=== PATIENT | female | born 1995 | race Caucasian/White ===

== ENCOUNTER 2020-05-23 09:48 | Inpatient (IN) | payer BC, OTHER ==
[2020-05-23] MEDS ORDERED: Tranexamic Acid 1,000 MG in Sodium Chloride 0.9% 100 ML IV PRN (21:59)
[2020-05-23] MEDS ORDERED: Carboprost Tromethamine 250 MCG/1 ML Amp IM PRN (21:59)
[2020-05-23] MEDS ORDERED: Methylergonovine 0.2 MG/1 ML Amp IM PRN (21:59)
[2020-05-23] MEDS ORDERED: Sodium Chloride 0.9% 10 ML Syringe FLUSH PRN (21:59)
[2020-05-23] MEDS ORDERED: Lidocaine 1% 30 ML SDV INJECT PRN (21:59)
[2020-05-23] MEDS ORDERED: Misoprostol 400 MCG (4 X 100 MCG TAB) RECTAL PRN (21:59)
[2020-05-23] MEDS ORDERED: Lactated Ringers 1,000 ML IV ONE (21:59)
[2020-05-23] MEDS ORDERED: Oxytocin/Normal Saline 30 UNIT/500 ML BAG IV SCH (22:00)
[2020-05-23] MEDS ORDERED: Penicillin G Potassium 5 MILLUNITS in Sodium Chloride 0.9% 100 ML IV ONE (22:15)
--- NOTE | 2020-05-23 22:42 | PCM.LDHP ---
L&D History of Present Illness - General Date of Service: 05/23/20 (Admit H&P) Admit Problem/Dx: Patient Status Order with Admit Dx/Problem 05/23/20 21:59 Patient Status [ADT] Routine Admission Diagnosis/Problem Admission Diagnosis/Problem labor established Ayaka is a delightful 24yo WF @ 39w4d who presentes with cxns every 3 minutes getting stronger. baby active. No LOF or bleeding. No pre-E sx. complications include Gestational DM, diet controlled GBS positive RI, RH positive. 05/23/20 22:31 Source of Information: Patient, Family, Old Records, Provider, RN, Other ([facility] notes and episode) History Limitations: Reports: No Limitations - History of Present Illness Introduction:: as above. Timing/Duration: Reports: minutes: (3), getting worse Location, : Reports: Uterus Severity: Moderate Improves with: Reports: None Worsens with: Reports: None Associated Symptoms: Reports: N - Related Data Allergies/Adverse Reactions: Allergies Allergy/AdvReac Type Severity Reaction Status Date / Time kiwi Allergy Cannot Verified 05/23/20 22:48 Remember cats Allergy Itching Uncoded 05/23/20 22:48 Home Medications: Home Meds Pnv No.95/Ferrous Fum/Folic AC [ Tablet] 1 tab PO DAILY 04/24/20 [History] Past Medical History HEENT History: Reports: Impaired Vision Other HEENT History: wears contacts Cardiovascular History: Reports: None Respiratory History: Reports: None Gastrointestinal History: Reports: GERD Genitourinary History: Reports: None CONTROL SYSTEMS SPECIALIST History: Reports: None, : 1 Para: 0 LMP (Approximate): Other Musculoskeletal History: back and neck problems in the past, broke right collar bone 7 years ago Neurological History: Reports: Concussion Psychiatric History: Reports: None Endocrine/Metabolic History: Reports: None Hematologic History: Reports: None Immunologic History: Reports: None Oncologic (Cancer) History: Reports: None Dermatologic History: Reports: None - Infectious Disease History Infectious Disease History: Reports: None - Past Surgical History Head Surgeries/Procedures: Reports: None Social & Family History - Family History Family Medical History: Noncontributory - Caffeine Use Caffeine Use: Reports: Coffee - Living Situation & Occupation Living situation: Reports: , with Significant Other Occupation: Employed H&P Review of Systems - Review of Systems: Review Of Systems: Comprehensive ROS is negative, except as noted in HPI. General: Reports: No Symptoms L&D Exam - Exam Exam: See Below - OB Specific Contraction Frequency (min): 3 Contraction Intensity: Moderate Movement: Active Heart Tones: Present Heart Tones per Min: 135 Heart Rate (FHR) Variability: Moderate (6-25 bmp) Presentation: Vertex - Eduardo Score Eduardo Score Cervix Position: Midposition Eduardo Score Consistency: Soft Eduardo Score Effacement: 51-70% Eduardo Score Dilation: 3-4 cm - Exam General: Alert, Oriented HEENT: Conjunctiva Clear, EACs Clear, EOMI, Hearing Intact, Mucosa Moist & [place], Nares Patent Neck: Supple, Trachea Midline Lungs: Clear to Auscultation, Normal Respiratory Effort Cardiovascular: Regular Rate, Regular Rhythm GI/Abdominal Exam: Normal Bowel Sounds, Soft, Non-Tender, No Organomegaly, No Abnormal Bruit, Pelvis Stable Rectal Exam: Normal Exam, Deferred Genitourinary: Normal external exam, Normal bimanual exam, Normal speculum exam Back Exam: Normal Inspection, Full Range of Motion Extremities: Normal Inspection, Normal Range of Motion, Non-Tender, Normal Capillary Refill, Pedal Edema Skin: Warm, Dry, Intact Neurological: Cranial Nerves Intact, Reflexes Equal Bilateral Psychiatric: Alert, Normal Affect, Normal Mood - Problem List (1) SNOMED Code(s): 92003249 ICD Code: Z34.90 - ENCNTR FOR SUPRVSN OF NORMAL , UNSP, UNSP TRIMESTER Status: Acute Current Visit: Yes (2) Blood type O+ SNOMED Code(s): 730983571 ICD Code: Z67.40 - TYPE O BLOOD, RH POSITIVE Status: Acute Current Visit: Yes (3) Rubella immune SNOMED Code(s): 644069392 ICD Code: Z78.9 - OTHER SPECIFIED HEALTH STATUS Status: Acute Current Visit: Yes (4) GBS (group B Streptococcus carrier), +RV culture, currently SNOMED Code(s): 7794765533914, 837738960, 8838657343948 ICD Code: O99.820 - STREPTOCOCCUS B CARRIER STATE COMPLICATING Status: Acute Current Visit: Yes (5) Gestational diabetes mellitus (GDM) SNOMED Code(s): 70611184 ICD Code: O24.419 - GESTATIONAL DIABETES MELLITUS IN , UNSP CONTROL Status: Acute Current Visit: Yes (6) Gestational [-induced] hypertension without significant proteinuria, complicating the puerperium SNOMED Code(s): 20504358, 89304714 ICD Code: O13.5 - GESTATNL HTN WITHOUT SIGNIFICANT PROTEIN, COMP THE PUERP Status: Acute Current Visit: Yes Problem List Initiated/Reviewed/Updated: Yes Orders Last 24hrs: Active Orders 24 hr Category Date Time Status Patient Status [ADT] Routine ADT 05/23/20 21:59 Active Blood Glucose Check, Bedside [RC] ONETIME Care 05/23/20 21:59 Active Communication Order [RC] ASDIRECTED Care 05/23/20 21:59 Active Heart Tones [RC] PER UNIT ROUTINE Care 05/23/20 21:59 Active Notify Provider Vital Signs OB [RC] ASDIRECTED Care 05/23/20 21:59 Active Notify Provider [RC] PRN Care 05/23/20 21:59 Active Pump Management, Intrathecal [RC] ASDIRECTED Care 05/23/20 22:01 Active Up ad Tiffanie [RC] ASDIRECTED Care 05/23/20 21:59 Active Vital Signs [RC] PER UNIT ROUTINE Care 05/23/20 21:59 Active ALANINE AMINOTRANSFERASE,ALT [CHEM] Routine Lab 05/23/20 21:59 Ordered ASPARTATE AMNIOTRANSFERASE,AST [CHEM] Routine Lab 05/23/20 21:59 Ordered BLOOD UREA NITROGEN,BUN [CHEM] Routine Lab 05/23/20 21:59 Ordered CBC W/O DIFF,HEMOGRAM [HEME] Routine Lab 05/23/20 21:59 Ordered CORONAVIRUS COVID-19 PCR PHL Stat Lab 05/23/20 21:59 Ordered CREATININE W/GFR [CHEM] Routine Lab 05/23/20 21:59 Ordered LACTATE DEHYDROGENASE,LDH [CHEM] Routine Lab 05/23/20 21:59 Ordered PROTEIN/CREATININE RATIO,URINE [URCHEM] Routine Lab 05/23/20 21:59 Ordered UA W/O MICROSCOPIC [URIN] Routine Lab 05/23/20 21:59 Ordered URIC ACID [CHEM] Routine Lab 05/23/20 21:59 Ordered Acetaminophen [TylenoL] Med 05/23/20 21:59 Active 650 mg PO Q4H PRN Carboprost Tromethamine [Hemabate DS] Med 05/23/20 21:59 Active 250 mcg IM ASDIRECTED PRN Lactated Ringers [Ringers, Lactated] 1,000 ml Med 05/23/20 22:00 Active IV ASDIRECTED Lactated Ringers [Ringers, Lactated] 1,000 ml Med 05/23/20 21:59 Active IV BOLUS Lidocaine 1% [Xylocaine-MPF 1%] Med 05/23/20 21:59 Active 30 ml INJECT ASDIRECTED PRN Methylergonovine [Methergine] Med 05/23/20 21:59 Active 0.2 mg IM ASDIRECTED PRN Ondansetron [Zofran] Med 05/23/20 21:59 Active 4 mg IVPUSH Q4H PRN Oxytocin/Normal Saline [Pitocin in NS 30 UNIT/500 ML] Med 05/23/20 22:00 Active 30 unit in 500 ml IV TITRATE Penicillin G Potassium [Pfizerpen] 3 millunits Med 05/24/20 02:00 Active Sodium Chloride 0.9% [Normal Saline] 100 ml IV Q4HR Penicillin G Potassium [Pfizerpen] 5 millunits Med 05/23/20 22:15 Active Sodium Chloride 0.9% [Normal Saline] 100 ml IV ONETIME Sodium Chloride 0.9% [Saline Flush] Med 05/23/20 21:59 Active 10 ml FLUSH ASDIRECTED PRN Tranexamic Acid [Cyklokapron] 1,000 mg Med 05/23/20 21:59 Active Sodium Chloride 0.9% [Normal Saline] 100 ml IV ONETIME miSOPROStoL [Cytotec] Med 05/23/20 21:59 Active 800 mcg RECTAL ASDIRECTED PRN Saline Lock Insert [OM.PC] Routine Oth 05/23/20 21:59 Ordered Resuscitation Status Routine Resus Stat 05/23/20 21:59 Ordered Medication Orders Acetaminophen (Tylenol) 650 mg PO Q4H PRN PRN Reason: Pain (Mild 1-3) and fever Carboprost Tromethamine (Hemabate Ds) 250 mcg IM ASDIRECTED PRN PRN Reason: HEMORRHAGE Lactated Ringer's (Ringers, Lactated) 1,000 mls @ 999 mls/hr IV BOLUS ONE Stop: 05/23/20 22:59 Lactated Ringer's (Ringers, Lactated) 1,000 mls @ 125 mls/hr IV ASDIRECTED LUZ MARINA Tranexamic Acid 1,000 mg/ (Sodium Chloride) 110 mls @ 660 mls/hr IV ONETIME PRN PRN Reason: Bleeding Oxytocin/Sodium Chloride (Pitocin In Ns 30 Unit/500 Ml) 30 unit in 500 mls @ 2 mls/hr IV TITRATE LUZ MARINA; Protocol Penicillin G Potassium 5 (millunits/ Sodium Chloride) 100 mls @ 200 mls/hr IV ONETIME ONE Stop: 05/23/20 22:44 Penicillin G Potassium 3 (millunits/ Sodium Chloride) 100 mls @ 200 mls/hr IV Q4HR LUZ MARINA Lidocaine HCl (Xylocaine-Mpf 1%) 30 ml INJECT ASDIRECTED PRN PRN Reason: Perineal Repair Methylergonovine Maleate (Methergine) 0.2 mg IM ASDIRECTED PRN PRN Reason: Hemorrhage Misoprostol (Cytotec) 800 mcg RECTAL ASDIRECTED PRN PRN Reason: Hemorrhage Ondansetron HCl (Zofran) 4 mg IVPUSH Q4H PRN PRN Reason: Nausea/Vomiting Sodium Chloride (Saline Flush) 10 ml FLUSH ASDIRECTED PRN PRN Reason: Keep Vein Open Assessment/Plan Comment:: Assessment/Plan: 24yo @ 39w4d with onset labor GBS+, planning PCN prophylaxis in labor blood type O+ Rubella immune Gestational Diabetes Mellitus --diet-controlled Gestational HTN, r/o Pre-eclampsia COVID negative NST reactive routine admit orders all questions answered. [facility]
[2020-05-23] MEDS: Lactated Ringers 1,000 ML IV SCH (23:09)
[2020-05-24] MEDS ORDERED: fentaNYL 100 MCG/2 ML SDV ONE ×2 (01:17→06:03)
[2020-05-24] MEDS ORDERED: Sodium Bicarbonate 4.2% 2.5 MEQ/5 ML SDV ONE ×2 (01:18→06:04)
[2020-05-24] MEDS ORDERED: EPINEPHrine 1 MG/1 ML Amp ONE ×2 (01:18→06:04)
[2020-05-24] MEDS: Ondansetron 4 MG/2 ML SDV IVPUSH PRN ×2 (01:25→05:57)
[2020-05-24] MEDS: Lactated Ringers 1,000 ML IV SCH ×3 (01:26→06:27)
--- NOTE | 2020-05-24 01:45 | PCM.SN.2 ---
- Free Text/Narrative Note: Intrathecal, sitting position, sterile prep and drape. 1 % lidocaine w bicarb for skinwheal to L2 L3 interspace. Introducer x 1. Pos CSF, neg heme, neg parasthesia. 0.1 ml 1:1000 pf epi, 15 mcg pf sufenta, 35 mcg pf fentanyl, 0.4 ml pf NS and 6 mg of 0.75% pf marcaine injected after csf aspiration. Pt to L lateral position. Procedure time 0115 to 0145
[2020-05-24] MEDS ORDERED: ePHEDrine 50 MG/ML SDV IVPUSH ONE (01:57)
[2020-05-24] MEDS: Penicillin G Potassium 3 MILLUNITS in Sodium Chloride 0.9% 100 ML IV SCH ×3 (01:57→18:45)
--- NOTE | 2020-05-24 06:24 | PCM.SN.2 ---
- Free Text/Narrative Note: Intrathecal, sitting position, sterile prep and drape. 1 % lidocaine w bicarb for skinwheal to L2 L3 interspace. Introducer x 1. Pos CSF, neg heme, neg parasthesia. 0.1 ml 1:1000 pf epi, 15 mcg pf sufenta, 35 mcg pf fentanyl, 0.4 ml pf NS and 6 mg of 0.75% pf marcaine injected after csf aspiration. Pt to L lateral position. Procedure time 0605 to 0635
--- NOTE | 2020-05-24 11:13 | PCM.DEL ---
L & D Note - General Info Date of Service: 05/24/20 (time of 0948) Mother's Due Date: 05/26/20 (39w5d) - Delivery Note Labor: Spontaneous Delivery Outcome: Livebirth Infant Delivery Method: Spontaneous Vaginal Delivery-Single Delivery Mode: Vacuum Extraction Presentation: Right Occiput Anterior (BLAZE) Nuchal Cord: None Prep: Povidone-Iodine (Betadine Anesthesia Type: Intrathecal Amniotic Fluid Description: Clear Episiotomy Type: None Laceration: 2nd Degree Suture type: Other (Polysorb) Suture size: 2-0 Placenta: Intact Cord: 3 Vessels Estimated Blood Loss: 200 Resuscitation Needed: No : Bulb Syringe, Stimulated, [place] Used Provider: Marilyn Shi Score 1 min: 8 Score 5 min: 9 Second Stage Interventions: Reports: Encouragement Given, Laboring Down, Pushing Effectively, Pushing, Feet in Foot Rests, Pushing, Pulls Own Legs Back Delivery Comments (Free Text/Narrative):: Ayaka completely dilated after sadleblock intrathecal placed and was allowed to labor down until she started to feel increased pelvic pressure and urge to push as tracings were reassuring. she was noted to have a prominent/low-placed pubic bone/arch, and therefore we assisted her to push in [place] position to decrease risk of shoulder dystocia. she was able to bring the baby's head down to nearly without assistance, however, it would retreat back up between contractions and the FHR was remaining in the upper 90s to 100s, so after discussion, vacuum cup applied X 1 and a half contractions, easily delivering the vertex in BLAZE presentation followed by the shoulders with my assistance, anhd the remainder of the female infant. strong cry at . baby delivered to mom's chest. dried, stimulated. APGARs 8 & 9. weight pending. cord doubly clamped by ,then cut by [place]. 3VC, cord blood sample obtained. placenta delivered intact. fundus firm and pitocin started per protocol. 2nd degree posterior midline laceration repaired in standard fashion without difficulty. she tolerated well. no complications. EBL <200cc. [facility] Vacuum Extractor Progress Note - Alternative Labor Strategies Considered Alternative Labor Strategies Considered:: Reports: Yes Strategies Considered:: Reports: Contraction Intensity Adequate, Position Changes Used to Facilitate Rotation & Descent, Empty Bladder (catheter placed 200cc clear urine) Indications Considered:: Reports: Yes Indications:: Reports: Shortening of 2nd Stage for Maternal Benefit, Suspicion of Immediate or Potential Compromise Time Out:: Reports: Yes - Patient Prepared Patient Prepared:: Reports: Yes Informed Consent:: Reports: Verbal Risks: Reports: Yes Anesthesia/Analgesia Adequate:: Reports: Yes - Probability of Success High Probability of Success:: Reports: Yes Weight Estimated:: Reports: AGA Patient Diabetic:: Reports: Yes Pelvis Adequate:: Reports: Yes Position:: +3 Asynclitic:: Reports: No Station:: +3 - Application Time Maximum Application Time & Number of Pop-Offs Predetermined:: Reports: Yes Number of Times Cup Disengaged:: 0 Type of Vacuum Used:: Reports: Cup: Davis type Vacuum Extraction: Successful - Exit Strategy Exit strategy available:: Reports: Yes and resuscitation teams readily available:: Reports: Yes Consult as indicated:: not indicated - General Info Date of Service: 05/24/20 - Patient Data Vitals - Most Recent: Last Vital Signs Temp 97.6 F 05/24/20 06:30 Pulse 69 05/24/20 07:00 Resp 18 05/24/20 07:00 BP 83/54 L 05/24/20 07:00 Pulse Ox 100 05/24/20 07:00 Weight - Most Recent: 176 lb Lab Results Last 24 Hours: Laboratory Results - last 24 hr 05/23/20 05/23/20 05/23/20 Range/Units 21:50 22:11 22:11 WBC (5.0-10.0) 10^3/uL RBC (4.2-5.4) 10^6/uL Hgb (12.0-16.0) g/dL Hct (37.0-47.0) % MCV (80-100) fL MCH (27.0-34.0) pg MCHC (33.0-35.0) g/dL Plt Count (150-450) 10^3/uL BUN (7-18) mg/dL Creatinine (0.55-1.02) mg/dL Est Cr Clr Drug Dosing mL/min Estimated GFR (MDRD) POC Glucose (70-105) mg/dl Uric Acid (2.6-6.0) mg/dL AST (15-37) U/L ALT (14-59) U/L Lactate Dehydrogenase (81-234) U/L Urine Color Yellow (YELLOW) Urine Appearance Clear (CLEAR) Urine pH 6.5 (5.0-9.0) Ur Specific [place] 1.010 (1.005-1.030) Urine Protein Negative (NEGATIVE) Urine Glucose (UA) Negative (NEGATIVE) Urine Ketones Negative (NEGATIVE) Urine Occult Blood Trace-lysed H (NEGATIVE) Urine Nitrite Negative (NEGATIVE) Urine Bilirubin Negative (NEGATIVE) Urine Urobilinogen 0.2 (0.2-1.0) mg/dL Ur Leukocyte Esterase Negative (NEGATIVE) Ur Random Creatinine < 13.00 (No establ ref range) mg/dL U Random Total Protein < 6.0 (0.0-11.9) mg/dL Protein/Creatinin Ratio TNP SARS CoV-2 RNA Rapid AXEL Negative (NEGATIVE) 05/23/20 05/23/20 05/24/20 Range/Units 22:27 22:27 00:17 WBC 9.0 (5.0-10.0) 10^3/uL RBC 4.66 (4.2-5.4) 10^6/uL Hgb 13.4 (12.0-16.0) g/dL Hct 40.0 (37.0-47.0) % MCV 85.8 (80-100) fL MCH 28.8 (27.0-34.0) pg MCHC 33.5 (33.0-35.0) g/dL Plt Count 201 (150-450) 10^3/uL BUN 9 (7-18) mg/dL Creatinine 0.76 (0.55-1.02) mg/dL Est Cr Clr Drug Dosing 89.50 mL/min Estimated GFR (MDRD) > 60 POC Glucose 62 L (70-105) mg/dl Uric Acid 5.5 (2.6-6.0) mg/dL AST 21 (15-37) U/L ALT 20 (14-59) U/L Lactate Dehydrogenase 305 H (81-234) U/L Urine Color (YELLOW) Urine Appearance (CLEAR) Urine pH (5.0-9.0) Ur Specific [place] (1.005-1.030) Urine Protein (NEGATIVE) Urine Glucose (UA) (NEGATIVE) Urine Ketones (NEGATIVE) Urine Occult Blood (NEGATIVE) Urine Nitrite (NEGATIVE) Urine Bilirubin (NEGATIVE) Urine Urobilinogen (0.2-1.0) mg/dL Ur Leukocyte Esterase (NEGATIVE) Ur Random Creatinine (No establ ref range) mg/dL U Random Total Protein (0.0-11.9) mg/dL Protein/Creatinin Ratio SARS CoV-2 RNA Rapid AXEL (NEGATIVE) Med Orders - Current: Current Medications Acetaminophen (Tylenol) 650 mg PO Q4H PRN PRN Reason: Pain (Mild 1-3) and fever Carboprost Tromethamine (Hemabate Ds) 250 mcg IM ASDIRECTED PRN PRN Reason: HEMORRHAGE Lactated Ringer's (Ringers, Lactated) 1,000 mls @ 125 mls/hr IV ASDIRECTED LUZ MARINA Last Admin: 05/24/20 06:27 Dose: 125 mls/hr Documented by: Tranexamic Acid 1,000 mg/ (Sodium Chloride) 110 mls @ 660 mls/hr IV ONETIME PRN PRN Reason: Bleeding Oxytocin/Sodium Chloride (Pitocin In Ns 30 Unit/500 Ml) 30 unit in 500 mls @ 2 mls/hr IV TITRATE LUZ MARINA; Protocol Penicillin G Potassium 3 (millunits/ Sodium Chloride) 100 mls @ 200 mls/hr IV Q4HR [facility] Last Admin: 05/24/20 06:25 Dose: 200 mls/hr Documented by: Lidocaine HCl (Xylocaine-Mpf 1%) 30 ml INJECT ASDIRECTED PRN PRN Reason: Perineal Repair Methylergonovine Maleate (Methergine) 0.2 mg IM ASDIRECTED PRN PRN Reason: Hemorrhage Misoprostol (Cytotec) 800 mcg RECTAL ASDIRECTED PRN PRN Reason: Hemorrhage Ondansetron HCl (Zofran) 4 mg IVPUSH Q4H PRN PRN Reason: Nausea/Vomiting Last Admin: 05/24/20 05:57 Dose: 4 mg Documented by: Sodium Chloride (Saline Flush) 10 ml FLUSH ASDIRECTED PRN PRN Reason: Keep Vein Open Discontinued Medications Ephedrine Sulfate (Ephedrine Sulfate) 10 mg IVPUSH ONETIME ONE Stop: 05/24/20 01:58 Last Admin: 05/24/20 02:13 Dose: 10 mg Documented by: Epinephrine HCl (Adrenalin) Confirm Administered Dose 1 mg .ROUTE .STK-MED ONE Stop: 05/24/20 01:19 Last Admin: 05/24/20 01:32 Dose: Not Given Documented by: Epinephrine HCl (Adrenalin) Confirm Administered Dose 1 mg .ROUTE .STK-MED ONE Stop: 05/24/20 06:05 Last Admin: 05/24/20 06:33 Dose: Not Given Documented by: Fentanyl (Sublimaze) Confirm Administered Dose 100 mcg .ROUTE .ST-MED ONE Stop: 05/24/20 01:18 Last Admin: 05/24/20 01:33 Dose: Not Given Documented by: Fentanyl (Sublimaze) Confirm Administered Dose 100 mcg .ROUTE .ST-MED ONE Stop: 05/24/20 06:04 Last Admin: 05/24/20 06:33 Dose: Not Given Documented by: Lactated Ringer's (Ringers, Lactated) 1,000 mls @ 999 mls/hr IV BOLUS ONE Stop: 05/23/20 22:59 Penicillin G Potassium 5 (millunits/ Sodium Chloride) 100 mls @ 200 mls/hr IV ONETIME ONE Stop: 05/23/20 22:44 Last Admin: 05/23/20 23:09 Dose: 200 mls/hr Documented by: Sodium Bicarbonate (Sodium Bicarbonate 4.2%) Confirm Administered Dose 2.5 meq .ROUTE .[facility]-MED ONE Stop: 05/24/20 01:19 Last Admin: 05/24/20 01:32 Dose: Not Given Documented by: Sodium Bicarbonate (Sodium Bicarbonate 4.2%) Confirm Administered Dose 2.5 meq .ROUTE .[facility]-MED ONE Stop: 05/24/20 06:05 Last Admin: 05/24/20 06:33 Dose: Not Given Documented by: Sufentanil Citrate (Sufenta) Confirm Administered Dose 50 mcg .ROUTE .ST-MED ONE Stop: 05/24/20 01:19 Last Admin: 05/24/20 01:32 Dose: Not Given Documented by: Sufentanil Citrate (Sufenta) Confirm Administered Dose 50 mcg .ROUTE .ST-MED ONE Stop: 05/24/20 06:05 Last Admin: 05/24/20 06:33 Dose: Not Given Documented by: - Problem List & Annotations (1) SNOMED Code(s): 80820332 Code(s): Z34.90 - Status: Acute Current Visit: Yes (2) Blood type O+ SNOMED Code(s): 345809606 Code(s): Z67.40 - Status: Acute Current Visit: Yes (3) Rubella immune SNOMED Code(s): 078067032 Code(s): Z78.9 - Status: Acute Current Visit: Yes (4) GBS (group B Streptococcus carrier), +RV culture, currently SNOMED Code(s): 6014426269287, 726199330, 5073272925585 Code(s): O99.820 - STREPTOCOCCUS B CARRIER STATE COMPLICATING Status: Acute Current Visit: Yes (5) Gestational diabetes mellitus (GDM) SNOMED Code(s): 31849012 Code(s): O24.419 - GESTATIONAL DIABETES MELLITUS IN , UNSP CONTROL Status: Acute Current Visit: Yes (6) Gestational [-induced] hypertension without significant proteinuria, complicating the puerperium SNOMED Code(s): 21364743, 99812088 Code(s): O13.5 - GESTATNL HTN WITHOUT SIGNIFICANT PROTEIN, COMP THE PUERP Status: Acute Current Visit: Yes (7) Vacuum extraction, delivered, current hospitalization SNOMED Code(s): 611730817 Code(s): O66.5 - ATTEMPTED APPLICATION OF VACUUM EXTRACTOR AND FORCEPS Status: Acute Current Visit: Yes (8) Mother currently breast-feeding SNOMED Code(s): 469422366 Code(s): Z39.1 - Status: Acute Current Visit: Yes - Problem List Review Problem List Initiated/Reviewed/Updated: Yes - My Orders Last 24 Hours: My Active Orders 05/23/20 21:59 Patient Status [ADT] Routine Blood Glucose Check, Bedside [RC] ONETIME Communication Order [RC] ASDIRECTED Heart Tones [RC] PER UNIT ROUTINE Notify Provider Vital Signs OB [RC] ASDIRECTED Notify Provider [RC] PRN Up ad Tiffanie [RC] ASDIRECTED Vital Signs [RC] PER UNIT ROUTINE CORONAVIRUS COVID-19 PCR PHL Stat Acetaminophen [TylenoL] 650 mg PO Q4H PRN Carboprost Tromethamine [Hemabate DS] 250 mcg IM ASDIRECTED PRN Lidocaine 1% [Xylocaine-MPF 1%] 30 ml INJECT ASDIRECTED PRN Methylergonovine [Methergine] 0.2 mg IM ASDIRECTED PRN Ondansetron [Zofran] 4 mg IVPUSH Q4H PRN Sodium Chloride 0.9% [Saline Flush] 10 ml FLUSH ASDIRECTED PRN Tranexamic Acid [Cyklokapron] 1,000 mg Sodium Chloride 0.9% [Normal Saline] 100 ml IV ONETIME miSOPROStoL [Cytotec] 800 mcg RECTAL ASDIRECTED PRN Saline Lock Insert [OM.PC] Routine Resuscitation Status Routine 05/23/20 22:00 Lactated Ringers [Ringers, Lactated] 1,000 ml IV ASDIRECTED Oxytocin/Normal Saline [Pitocin in NS 30 UNIT/500 ML] 30 unit in 500 ml IV TITRATE 05/23/20 22:01 Pump Management, Intrathecal [RC] ASDIRECTED 05/23/20 22:53 Nitrous Oxide Delivery [RC] ASDIRECTED OB Discontinue Nitrous Oxide [RC] ASDIRECTED 05/24/20 02:00 Penicillin G Potassium [Pfizerpen] 3 millunits Sodium Chloride 0.9% [Normal Saline] 100 ml IV Q4HR - Plan Plan:: Assessment/Plan: 24yo @ 39w4d with onset labor GBS+, planning PCN prophylaxis in labor blood type O+ Rubella immune Gestational Diabetes Mellitus --diet-controlled Gestational HTN, r/o Pre-eclampsia COVID negative NST reactive routine admit orders all questions answered. [facility] Delivery info: 05-24-2020 @ 09 VAVD with 1 and 1/2 cxns vaible female infant APGARs 8 & 9 BW pending EBL 200cc 2nd degree laceration. [facility]
[2020-05-24] MEDS ORDERED: Simethicone 80 MG Tab.Chew PO PRN (11:44)
[2020-05-24] MEDS ORDERED: Benzocaine/Menthol 20%-0.5% Spray 56 GM Canister TOP PRN (11:44)
[2020-05-24] MEDS: Ibuprofen 800 MG Tab PO PRN ×2 (13:06→20:35)
[2020-05-24] MEDS: Docusate Sodium 100 MG Cap PO PRN (20:35)
[2020-05-24] MEDS: Acetaminophen 325 MG Tab PO PRN (20:36)
[2020-05-24] MEDS ORDERED: Zolpidem 5 MG Tab PO PRN (21:00)
[2020-05-25] MEDS: Acetaminophen 325 MG Tab PO PRN ×2 (03:52→09:45)
[2020-05-25] MEDS: Ibuprofen 800 MG Tab PO PRN ×3 (03:56→23:04)
[2020-05-25] MEDS: Docusate Sodium 100 MG Cap PO PRN ×2 (09:45→23:04)
[2020-05-25] MEDS: Prenatal Multivitamin with Calcium/Folic Acid/Iron Tab PO SCH (09:45)
[2020-05-25] MEDS ORDERED: fentaNYL 100 MCG/2 ML SDV ITHECAL ONE ×2 (13:48→13:49)
[2020-05-25] MEDS ORDERED: Sodium Bicarbonate 4.2% 2.5 MEQ/5 ML SDV ONE ×2 (13:48→13:49)
[2020-05-25] MEDS ORDERED: EPINEPHrine 1 MG/1 ML Amp ONE (13:49)
--- NOTE | 2020-05-25 14:12 | PCM.SN.2 ---
- Free Text/Narrative Note: d DOS: 05-25-2020 Ayaka feeling well day #1 comfortable. VSS, afebrile. flow OKl eating, voiding and ambulating without difficulty. anesthesia wearing off. VSS afebrile. HEENT negative lungs Ctear HS regular abdomen WNL continue current cares. home tomorrow. apts made for next week all questions answered. [facility]
[2020-05-26] MEDS: Ibuprofen 800 MG Tab PO PRN (08:36)
[2020-05-26] MEDS: Docusate Sodium 100 MG Cap PO PRN (08:36)
[2020-05-26] MEDS: Prenatal Multivitamin with Calcium/Folic Acid/Iron Tab PO SCH (08:36)
--- NOTE | 2020-05-26 10:43 | PCM.PNPP ---
- General Info Date of Service: 05/26/20 Subjective Update: Patient is post day 2 from vacuum assisted vaginal delivery for diet controlled gestational diabetes. She has been doing well and has no new concerns. Lochia is mild to moderate. Her pain is controlled with OTC medications. She is passing gas but no bowel movement yet. Her lower extremity edema is improving. She is . She's had no fever, chills, nausea or vomiting. Functional Status: Reports: Pain Controlled - Review of Systems General: Denies: Fever, Chills HEENT: Denies: Headaches, Visual Changes Pulmonary: Denies: Shortness of Breath, Cough Cardiovascular: Reports: Edema. Denies: Lightheadedness Gastrointestinal: Denies: Nausea, Vomiting Neurological: Denies: Dizziness, Headache, Numbness - Patient Data Vital Signs - Most Recent: Last Vital Signs Temp 97.8 F 05/26/20 08:00 Pulse 88 05/26/20 08:00 Resp 16 05/26/20 08:00 BP 101/69 05/26/20 08:00 Pulse Ox 95 05/26/20 08:00 Weight - Most Recent: 176 lb Med Orders - Current: Current Medications Acetaminophen (Tylenol) 650 mg PO Q4H PRN PRN Reason: Pain (Mild 1-3) and fever Last Admin: 05/25/20 09:45 Dose: 650 mg Documented by: Benzocaine/Menthol (Dermoplast Pain Relief [place]) 0 gm TOP Q4H PRN PRN Reason: Perineal comfort measures Last Admin: 05/24/20 13:08 Dose: 1 applic Documented by: Carboprost Tromethamine (Hemabate Ds) 250 mcg IM ASDIRECTED PRN PRN Reason: HEMORRHAGE Docusate Sodium (Colace) 100 mg PO BID PRN PRN Reason: Constipation Last Admin: 05/26/20 08:36 Dose: 100 mg Documented by: Lactated Ringer's (Ringers, Lactated) 1,000 mls @ 125 mls/hr IV ASDIRECTED LUZ MARINA Last Admin: 05/24/20 06:27 Dose: 125 mls/hr Documented by: Tranexamic Acid 1,000 mg/ (Sodium Chloride) 110 mls @ 660 mls/hr IV ONETIME PRN PRN Reason: Bleeding Oxytocin/Sodium Chloride (Pitocin In Ns 30 Unit/500 Ml) 30 unit in 500 mls @ 2 mls/hr IV TITRATE LUZ MARINA; Protocol Last Titration: 05/24/20 12:52 Dose: 0 munits/min, 0 mls/hr Documented by: Ibuprofen (Motrin) 800 mg PO Q8H PRN PRN Reason: Mild Pain or Fever, USE 2ND Last Admin: 05/26/20 08:36 Dose: 800 mg Documented by: Lidocaine HCl (Xylocaine-Mpf 1%) 30 ml INJECT ASDIRECTED PRN PRN Reason: Perineal Repair Methylergonovine Maleate (Methergine) 0.2 mg IM ASDIRECTED PRN PRN Reason: Hemorrhage Misoprostol (Cytotec) 800 mcg RECTAL ASDIRECTED PRN PRN Reason: Hemorrhage Ondansetron HCl (Zofran) 4 mg IVPUSH Q4H PRN PRN Reason: Nausea/Vomiting Last Admin: 05/24/20 05:57 Dose: 4 mg Documented by: Prenat Multivit/[place]/Iron/Folic Ac ( Plus Iron) 1 each PO DAILY LUZ MARINA Last Admin: 05/26/20 08:36 Dose: 1 each Documented by: Simethicone (Simethicone) 80 mg PO Q4H PRN PRN Reason: Gas Last Admin: 05/24/20 20:34 Dose: 80 mg Documented by: Sodium Chloride (Saline Flush) 10 ml FLUSH ASDIRECTED PRN PRN Reason: Keep Vein Open Witch Conchita (Medi-Pads) 1 each TOP Q4HR PRN PRN Reason: Perineal Comfort Measure Last Admin: 05/24/20 20:39 Dose: 1 pad Documented by: Zolpidem Tartrate (Ambien) 5 mg PO BEDTIME PRN PRN Reason: Insomnia Discontinued Medications Ephedrine Sulfate (Ephedrine Sulfate) 10 mg IVPUSH ONETIME ONE Stop: 05/24/20 01:58 Last Admin: 05/24/20 02:13 Dose: 10 mg Documented by: Epinephrine HCl (Adrenalin) Confirm Administered Dose 1 mg .ROUTE .STK-MED ONE Stop: 05/24/20 01:19 Last Admin: 05/24/20 01:32 Dose: Not Given Documented by: Epinephrine HCl (Adrenalin) Confirm Administered Dose 1 mg .ROUTE .STK-MED ONE Stop: 05/24/20 06:05 Last Admin: 05/24/20 06:33 Dose: Not Given Documented by: Epinephrine HCl (Adrenalin) 0.1 mg .XX .STK-MED ONE Stop: 05/25/20 13:50 Fentanyl (Sublimaze) Confirm Administered Dose 100 mcg .ROUTE .STK-MED ONE Stop: 05/24/20 01:18 Last Admin: 05/24/20 01:33 Dose: Not Given Documented by: Fentanyl (Sublimaze) Confirm Administered Dose 100 mcg .ROUTE .STK-MED ONE Stop: 05/24/20 06:04 Last Admin: 05/24/20 06:33 Dose: Not Given Documented by: Fentanyl (Sublimaze) 35 mcg ITHECAL .STK-MED ONE Stop: 05/25/20 13:49 Fentanyl (Sublimaze) 35 mcg ITHECAL .STK-MED ONE Stop: 05/25/20 13:50 Lactated Ringer's (Ringers, Lactated) 1,000 mls @ 999 mls/hr IV BOLUS ONE Stop: 05/23/20 22:59 Penicillin G Potassium 5 (millunits/ Sodium Chloride) 100 mls @ 200 mls/hr IV ONETIME ONE Stop: 05/23/20 22:44 Last Admin: 05/23/20 23:09 Dose: 200 mls/hr Documented by: Penicillin G Potassium 3 (millunits/ Sodium Chloride) 100 mls @ 200 mls/hr IV Q4HR LUZ MARINA Last Admin: 05/24/20 18:45 Dose: Not Given Documented by: Sodium Bicarbonate (Sodium Bicarbonate 4.2%) Confirm Administered Dose 2.5 meq .ROUTE .STK-MED ONE Stop: 05/24/20 01:19 Last Admin: 05/24/20 01:32 Dose: Not Given Documented by: Sodium Bicarbonate (Sodium Bicarbonate 4.2%) Confirm Administered Dose 2.5 meq .ROUTE .STK-MED ONE Stop: 05/24/20 06:05 Last Admin: 05/24/20 06:33 Dose: Not Given Documented by: Sodium Bicarbonate (Sodium Bicarbonate 4.2%) 0.5 meq .XX .STK-MED ONE Stop: 05/25/20 13:49 Sodium Bicarbonate (Sodium Bicarbonate 4.2%) 0.5 meq .XX .STK-MED ONE Stop: 05/25/20 13:50 Sufentanil Citrate (Sufenta) Confirm Administered Dose 50 mcg .ROUTE .STK-MED ONE Stop: 05/24/20 01:19 Last Admin: 05/24/20 01:32 Dose: Not Given Documented by: Sufentanil Citrate (Sufenta) Confirm Administered Dose 50 mcg .ROUTE .STK-MED ONE Stop: 05/24/20 06:05 Last Admin: 05/24/20 06:33 Dose: Not Given Documented by: Sufentanil Citrate (Sufenta) 15 mcg ITHECAL .STK-MED ONE Stop: 05/25/20 13:49 Sufentanil Citrate (Sufenta) 15 mcg ITHECAL .STK-MED ONE Stop: 05/25/20 13:50 - Interaction Support Person: Mother - Recovery Exam Fundal Tone: Firm Fundal Level: At Umbilicus Fundal Placement: Midline Lochia Amount: Scant Lochia Color: Serosa/Sentinel Perineum Description: Intact, Minimal Bruising/Swelling Episiotomy/Laceration: Approximated Bladder Status: Voiding Urinary Elimination: Voided - Exam General: Alert, Oriented HEENT: Pupils Equal Neck: Supple, Trachea Midline Lungs: Clear to Auscultation, Normal Respiratory Effort Cardiovascular: Regular Rate, Regular Rhythm, No Murmurs GI/Abdominal Exam: Non-Tender Extremities: Non-Tender, Pedal Edema (1+) Skin: Warm, Dry Neurological: No New Focal Deficit - Problem List & Annotations (1) Blood type O+ SNOMED Code(s): 973975257 Code(s): Z67.40 - TYPE O BLOOD, RH POSITIVE Status: Acute (2) GBS (group B Streptococcus carrier), +RV culture, currently SNOMED Code(s): 6736848994897, 601476867, 8512506937786 Code(s): O99.820 - STREPTOCOCCUS B CARRIER STATE COMPLICATING Status: Acute (3) Gestational [-induced] hypertension without significant proteinuria, complicating the puerperium SNOMED Code(s): 16125338, 11896318 Code(s): O13.5 - GESTATNL HTN WITHOUT SIGNIFICANT PROTEIN, COMP THE PUERP Status: Acute (4) Gestational diabetes mellitus (GDM) SNOMED Code(s): 69447753 Code(s): O24.419 - GESTATIONAL DIABETES MELLITUS IN , UNSP CONTROL Status: Acute (5) Mother currently breast-feeding SNOMED Code(s): 969546013 Code(s): Z39.1 - ENCOUNTER FOR CARE AND EXAMINATION OF LACTATING MOTHER Status: Acute (6) SNOMED Code(s): 61472478 Code(s): Z34.90 - ENCNTR FOR SUPRVSN OF NORMAL , UNSP, UNSP TRIMESTER Status: Acute (7) Rubella immune SNOMED Code(s): 894654304 Code(s): Z78.9 - OTHER SPECIFIED HEALTH STATUS Status: Acute (8) Vacuum extraction, delivered, current hospitalization SNOMED Code(s): 725321614 Code(s): O66.5 - ATTEMPTED APPLICATION OF VACUUM EXTRACTOR AND FORCEPS Status: Acute - Problem List Review Problem List Initiated/Reviewed/Updated: Yes - My Orders Last 24 Hours: My Active Orders 05/26/20 10:42 Ready for Discharge [RC] PER UNIT ROUTINE - Plan Plan:: Assessment/Plan: 24yo @ 39w4d s/p vacuum assisted vaginal delivery Patient is . Continue normal post orders. Will discharge home today. Education completed. Signs/symptoms that would require evaluation discussed. Follow up in 6 weeks for post visit. Pelvic rest until then. Kiana Rendon MD Delivery info: 05-24-2020 @ 0948 VAVD with 1 and 1/2 cxns viable female APGARs 8 & 9 weight 7 lbs 14.28 oz EBL 200cc 2nd degree laceration. hmb
--- NOTE | 2020-05-26 10:44 | PCM.DCSUM1 ---
Discharge Summary - Hospital Course Free Text/Narrative:: Patient is a female who presented in labor at 39w5d. was complicated by diet controlled gestational diabetes. She delivered healthy baby girl via vacuum assisted vaginal delivery. She suffered a 2nd degree laceration that was repaired. her post course was uneventful and she was discharged on post day 2. She is breast feeding. She will follow up with Dr. Shi in 6 weeks. - Discharge Data Discharge Date: 05/26/20 Discharge Disposition: Home, Self-Care 01 Condition: Good - Referral to Home Health Primary Care Physician: Marilyn Shi MD - Discharge Plan *PRESCRIPTION DRUG MONITORING PROGRAM REVIEWED*: Not Applicable *COPY OF PRESCRIPTION DRUG MONITORING REPORT IN PATIENT IRVIN: Not Applicable Home Medications: Home Meds Pnv No.95/Ferrous Fum/Folic AC [ Tablet] 1 tab PO DAILY 04/24/20 [His tory] Patient Handouts: Vaginal Delivery, Care of a Perineal Tear Referrals: Marilyn Shi MD [Primary Care Provider] - (Please schedule 6 week appointment. ) - Discharge Summary/Plan Comment DC Time >30 min.: No - Patient Data Vitals - Most Recent: Last Vital Signs Temp 97.8 F 05/26/20 08:00 Pulse 88 05/26/20 08:00 Resp 16 05/26/20 08:00 BP 101/69 05/26/20 08:00 Pulse Ox 95 05/26/20 08:00 Weight - Most Recent: 176 lb Med Orders - Current: Current Medications Acetaminophen (Tylenol) 650 mg PO Q4H PRN PRN Reason: Pain (Mild 1-3) and fever Last Admin: 05/25/20 09:45 Dose: 650 mg Documented by: Benzocaine/Menthol (Dermoplast Pain Relief [place]) 0 gm TOP Q4H PRN PRN Reason: Perineal comfort measures Last Admin: 05/24/20 13:08 Dose: 1 applic Documented by: Carboprost Tromethamine (Hemabate Ds) 250 mcg IM ASDIRECTED PRN PRN Reason: HEMORRHAGE Docusate Sodium (Colace) 100 mg PO BID PRN PRN Reason: Constipation Last Admin: 05/26/20 08:36 Dose: 100 mg Documented by: Lactated Ringer's (Ringers, Lactated) 1,000 mls @ 125 mls/hr IV ASDIRECTED LUZ MARINA Last Admin: 05/24/20 06:27 Dose: 125 mls/hr Documented by: Tranexamic Acid 1,000 mg/ (Sodium Chloride) 110 mls @ 660 mls/hr IV ONETIME PRN PRN Reason: Bleeding Oxytocin/Sodium Chloride (Pitocin In Ns 30 Unit/500 Ml) 30 unit in 500 mls @ 2 mls/hr IV TITRATE [facility]; Protocol Last Titration: 05/24/20 12:52 Dose: 0 munits/min, 0 mls/hr Documented by: Ibuprofen (Motrin) 800 mg PO Q8H PRN PRN Reason: Mild Pain or Fever, USE 2ND Last Admin: 05/26/20 08:36 Dose: 800 mg Documented by: Lidocaine HCl (Xylocaine-Mpf 1%) 30 ml INJECT ASDIRECTED PRN PRN Reason: Perineal Repair Methylergonovine Maleate (Methergine) 0.2 mg IM ASDIRECTED PRN PRN Reason: Hemorrhage Misoprostol (Cytotec) 800 mcg RECTAL ASDIRECTED PRN PRN Reason: Hemorrhage Ondansetron HCl (Zofran) 4 mg IVPUSH Q4H PRN PRN Reason: Nausea/Vomiting Last Admin: 05/24/20 05:57 Dose: 4 mg Documented by: Prenat Multivit/[place]/Iron/Folic Ac ( Plus Iron) 1 each PO DAILY [facility] Last Admin: 05/26/20 08:36 Dose: 1 each Documented by: Simethicone (Simethicone) 80 mg PO Q4H PRN PRN Reason: Gas Last Admin: 05/24/20 20:34 Dose: 80 mg Documented by: Sodium Chloride (Saline Flush) 10 ml FLUSH ASDIRECTED PRN PRN Reason: Keep Vein Open Witch Conch[place] (Medi-Pads) 1 each TOP Q4HR PRN PRN Reason: Perineal Comfort Measure Last Admin: 05/24/20 20:39 Dose: 1 pad Documented by: Zolpidem Tartrate (Ambien) 5 mg PO BEDTIME PRN PRN Reason: Insomnia Discontinued Medications Ephedrine Sulfate (Ephedrine Sulfate) 10 mg IVPUSH ONETIME ONE Stop: 05/24/20 01:58 Last Admin: 05/24/20 02:13 Dose: 10 mg Documented by: Epinephrine HCl (Adrenalin) Confirm Administered Dose 1 mg .ROUTE .STK-MED ONE Stop: 05/24/20 01:19 Last Admin: 05/24/20 01:32 Dose: Not Given Documented by: Epinephrine HCl (Adrenalin) Confirm Administered Dose 1 mg .ROUTE .STK-MED ONE Stop: 05/24/20 06:05 Last Admin: 05/24/20 06:33 Dose: Not Given Documented by: Epinephrine HCl (Adrenalin) 0.1 mg .XX .STK-MED ONE Stop: 05/25/20 13:50 Fentanyl (Sublimaze) Confirm Administered Dose 100 mcg .ROUTE .STK-MED ONE Stop: 05/24/20 01:18 Last Admin: 05/24/20 01:33 Dose: Not Given Documented by: Fentanyl (Sublimaze) Confirm Administered Dose 100 mcg .ROUTE .STK-MED ONE Stop: 05/24/20 06:04 Last Admin: 05/24/20 06:33 Dose: Not Given Documented by: Fentanyl (Sublimaze) 35 mcg ITHECAL .STK-MED ONE Stop: 05/25/20 13:49 Fentanyl (Sublimaze) 35 mcg ITHECAL .STK-MED ONE Stop: 05/25/20 13:50 Lactated Ringer's (Ringers, Lactated) 1,000 mls @ 999 mls/hr IV BOLUS ONE Stop: 05/23/20 22:59 Penicillin G Potassium 5 (millunits/ Sodium Chloride) 100 mls @ 200 mls/hr IV ONETIME ONE Stop: 05/23/20 22:44 Last Admin: 05/23/20 23:09 Dose: 200 mls/hr Documented by: Penicillin G Potassium 3 (millunits/ Sodium Chloride) 100 mls @ 200 mls/hr IV Q4HR LUZ MARINA Last Admin: 05/24/20 18:45 Dose: Not Given Documented by: Sodium Bicarbonate (Sodium Bicarbonate 4.2%) Confirm Administered Dose 2.5 meq .ROUTE .STK-MED ONE Stop: 05/24/20 01:19 Last Admin: 05/24/20 01:32 Dose: Not Given Documented by: Sodium Bicarbonate (Sodium Bicarbonate 4.2%) Confirm Administered Dose 2.5 meq .ROUTE .STK-MED ONE Stop: 05/24/20 06:05 Last Admin: 05/24/20 06:33 Dose: Not Given Documented by: Sodium Bicarbonate (Sodium Bicarbonate 4.2%) 0.5 meq .XX .STK-MED ONE Stop: 05/25/20 13:49 Sodium Bicarbonate (Sodium Bicarbonate 4.2%) 0.5 meq .XX .STK-MED ONE Stop: 05/25/20 13:50 Sufentanil Citrate (Sufenta) Confirm Administered Dose 50 mcg .ROUTE .STK-MED ONE Stop: 05/24/20 01:19 Last Admin: 05/24/20 01:32 Dose: Not Given Documented by: Sufentanil Citrate (Sufenta) Confirm Administered Dose 50 mcg .ROUTE .STK-MED ONE Stop: 05/24/20 06:05 Last Admin: 05/24/20 06:33 Dose: Not Given Documented by: Sufentanil Citrate (Sufenta) 15 mcg ITHECAL .STK-MED ONE Stop: 05/25/20 13:49 Sufentanil Citrate (Sufenta) 15 mcg ITHECAL .STK-MED ONE Stop: 05/25/20 13:50
== END 2020-05-26 12:00 | disposition home or self-care (01) | DRG 560 ==
LOC: DL.OB 09:48 → OBSVTOIN 05-24 09:48
PROVIDERS: ADMIT Family Medicine; ATTEND Family Medicine
PROC: 10D07Z6 Extraction of Products of Conception, Vacuum, Via Natural or Artificial Opening (ICD-10-PCS; principal; 2020-05-24)
PROC: 0KQM0ZZ Repair Perineum Muscle, Open Approach (ICD-10-PCS; 2020-05-24)
PROC: 3E0R3BZ Introduction of Anesthetic Agent into Spinal Canal, Percutaneous Approach (ICD-10-PCS; 2020-05-24)
PROC: 00HU33Z Insertion of Infusion Device into Spinal Canal, Percutaneous Approach (ICD-10-PCS; 2020-05-24)
DX: O24.420 Gestational diabetes mellitus in childbirth, diet controlled (principal); Z3A.39 39 weeks gestation of pregnancy; Z37.0 Single live birth; O70.1 Second degree perineal laceration during delivery; Z91.09 Other allergy status, other than to drugs and biological substances; O99.62 Diseases of the digestive system complicating childbirth; K21.9 Gastro-esophageal reflux disease without esophagitis; O13.4 Gestational [pregnancy-induced] hypertension without significant proteinuria, complicating childbirth; O99.824 Streptococcus B carrier state complicating childbirth; Z20.828 Contact with and (suspected) exposure to other viral communicable diseases
CPT/HCPCS: 01967; 36415; 59409; 81003; 82565; 82570; 82962; 83615; 84156; 84450; 84460; 84520; 84550; 85027; A9270-GY; J0171; J2405; J2540; J2590; J3010; J7050; J7120; U0002